=== PATIENT | female | born 2000 | race Caucasian/White ===

== ENCOUNTER 2021-08-28 18:16 | Emergency (ER) | payer MEDICAID, OTHER ==
[~2021-08-28] VITALS: Ht 170.2 cm; Wt 100.0 kg
[2021-08-28 19:48] VITALS: BP 120/75
[2021-08-28] MEDS ORDERED: ACETAMINOPHEN 325MG TABLET PO ONE (21:00)
== END 2021-08-28 21:44 | disposition home or self-care (01) ==
LOC: ER 18:16
DX: B34.9 Viral infection, unspecified (principal); Z98.890 Other specified postprocedural states
CPT/HCPCS: 81025; 99282

== ENCOUNTER 2022-05-11 15:16 | Emergency (ER) | payer MEDICAID ==
[~2022-05-11] VITALS: Ht 170.2 cm; Wt 109.0 kg
[2022-05-11 15:20] VITALS: BP 139/85
== END 2022-05-11 21:18 | disposition left against medical advice (07) ==
LOC: ER 15:16
DX: Z53.21 Procedure and treatment not carried out due to patient leaving prior to being seen by health care provider (principal)